=== PATIENT | male | born 1995 | race Caucasian/White ===

== ENCOUNTER 2017-04-24 11:57 | Outpatient (CLI) | payer OTHER | END 2017-04-24 11:58 | disposition short-term general hospital (02) | LOC: EMS 11:57 | PROVIDERS: ATTEND Surgery | DX: R68.89 Other general symptoms and signs (principal); X31.XXXA Exposure to excessive natural cold, initial encounter; Y93.11 Activity, swimming; Y92.832 Beach as the place of occurrence of the external cause | CPT/HCPCS: A0425; A0429 ==